=== PATIENT | female | born 2000 | race Caucasian/White ===

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

== ENCOUNTER 2022-07-29 21:31 | Emergency (ER) | payer OTHER ==
[~2022-07-29] VITALS: Ht 157.5 cm; Wt 83.0 kg
[2022-07-29 21:40] VITALS: BP 120/83
--- NOTE | 2022-07-29 21:43 | NUR ---
to lobby a/w bed ambulatory with the mother
--- NOTE | 2022-07-29 22:16 | NUR ---
PT BIB MOTHER WITH C/O SYNCOPE AT 1930 TONIGHT. PT STATES LOC FOR AROUND 30 SECONDS. PT ENDORSES GENERALIZED LACEY DENIES HEAD INJURY, N/V, VISION CHANGES, SOB, FEVER, OR CHILLS. PMHX THYROID DISEASE. PT IS AAOX4, NAD, VSS, BREATHING EVEN AND UNLABORED.
[2022-07-29 22:41] LABS: APPEARANCE,URINE CLEAR (CLEAR); BILIRUBIN,URINE NEGATIVE (NEGATIVE); BLOOD, URINE 2+ (NEGATIVE); COLOR,URINE YELLOW (YELLOW); LEUKOCYTE ESTERASE ,URINE TRACE (NEGATIVE); NITRITE, URINE NEGATIVE (NEGATIVE); UGLUCOSE NEGATIVE (NEGATIVE)
[2022-07-29] MEDS ORDERED: ACETAMINOPHEN 325 MG TAB PO ONE (23:10)
[2022-07-29] MEDS ORDERED: IBUPROFEN 600 MG TAB PO ONE (23:10)
[2022-07-29 23:41] VITALS: BP 105/66
--- NOTE | 2022-07-29 23:44 | NUR ---
Patient discharged with v/s stable. Written and verbal after care instructions given and explained. Patient verbalized understanding. Ambulatory with steady gait. All questions addressed prior to discharge. Advised to follow up with PMD.
== END 2022-07-29 23:44 | disposition home or self-care (01) ==
LOC: MED 21:31
DX: R42 Dizziness and giddiness (principal); R55 Syncope and collapse; Z79.899 Other long term (current) drug therapy
CPT/HCPCS: 81001; 81025; 87086; 93005; 99284

== ENCOUNTER 2023-10-14 13:12 | Emergency (ER) | payer OTHER ==
[~2023-10-14] VITALS: Ht 154.9 cm; Wt 79.8 kg
[2023-10-14 13:28] VITALS: BP 116/88; PULSE 84; RESP 22; TEMP 98.9; O2SAT 98
[2023-10-14] MEDS: NACL 0.9% 1,000 ML IV ONE (14:26)
[2023-10-14] MEDS: ONDANSETRON 4 MG/2 ML VIAL IVP ONE (14:49)
[2023-10-14] MEDS: KETOROLAC 30 MG/ML VIAL IVP ONE (14:49)
[2023-10-14 16:23] VITALS: BP 104/63; PULSE 79; RESP 22; TEMP 98.9; O2SAT 98
== END 2023-10-14 16:24 | disposition home or self-care (01) ==
LOC: MED 13:12
DX: T67.5XXA Heat exhaustion, unspecified, initial encounter (principal); G43.909 Migraine, unspecified, not intractable, without status migrainosus; R11.2 Nausea with vomiting, unspecified; F32.9 Major depressive disorder, single episode, unspecified; Z86.39 Personal history of other endocrine, nutritional and metabolic disease; Z79.899 Other long term (current) drug therapy; X30.XXXA Exposure to excessive natural heat, initial encounter; Y93.89 Activity, other specified; Y92.512 Supermarket, store or market as the place of occurrence of the external cause; Y99.8 Other external cause status
CPT/HCPCS: 81025; 82948; 93005; 96361; 96374; 96375; 99284; J1885; J2405; J7030

== ENCOUNTER 2023-12-10 08:40 | Emergency (ER) | payer OTHER ==
[~2023-12-10] VITALS: Ht 167.6 cm; Wt 90.7 kg
[2023-12-10 08:42] VITALS: BP 119/97; PULSE 84; RESP 16; TEMP 97.8; O2SAT 99
[2023-12-10] MEDS: ALUMINUM HYD/MAG/SIMETHICONE 30 ML UDC PO ONE (09:26)
[2023-12-10] MEDS: ONDANSETRON 4 MG ODT PO ONE (09:28)
[2023-12-10] MEDS ORDERED: ALUM355S59 PO (09:57)
[2023-12-10] MEDS ORDERED: ONDA-188 SL (09:57)
[2023-12-10] MEDS ORDERED: SUCR1TAB56 PO (09:57)
[2023-12-10] MEDS ORDERED: FAMO-92 PO (09:57)
[2023-12-10 10:11] VITALS: BP 115/78; PULSE 73; RESP 20; O2SAT 97
== END 2023-12-10 10:11 | disposition home or self-care (01) ==
LOC: MED 08:40
DX: K21.9 Gastro-esophageal reflux disease without esophagitis (principal); F41.9 Anxiety disorder, unspecified; F32.9 Major depressive disorder, single episode, unspecified; Z86.39 Personal history of other endocrine, nutritional and metabolic disease; Z79.899 Other long term (current) drug therapy
CPT/HCPCS: 93005; 99284; Q0162